=== PATIENT | male | born 1945 | race Caucasian/White ===

== ENCOUNTER 2019-11-05 10:40 | Inpatient (IN) | payer MEDICARE ==
[~2019-11-05] VITALS: Ht 188 cm; Wt 92.3 kg
[2019-11-05 12:00] VITALS: BP 128/72
[2019-11-05 12:22] LABS: BASOPHILS # (AUTO) 0.14 x10^3/uL (0-0.1); BASOPHILS % (AUTO) 1 % (0-1); EOSINOPHILS % (AUTO) 2 % (1-7); LYMPHOCYTES # (AUTO) 0.59 x10^3/uL (1-3.4); LYMPHOCYTES % (AUTO) 5 % (22-44); MD NO; MEAN CORPUSCULAR HEMOGLOBIN 27.7 pg (27.5-34.5); MEAN CORPUSCULAR HGB CONC 31.8 g/dL (33.2-36.2); MEAN CORPUSCULAR VOLUME 87.1 fL (81-97); MEAN PLATELET VOLUME 7.3 fL (7.4-10.4); MONOCYTES # (AUTO) 0.63 x10^3/uL (0.2-0.8); MONOCYTES % (AUTO) 5 % (2-9); NEUTROPHILS # (AUTO) 10.96 x10^3/uL (1.8-6.8); NEUTROPHILS % (AUTO) 88 % (42-75); PLATELET COUNT 412 x10^3/uL (130-400); RED BLOOD COUNT 3.33 x10^6/uL (4.38-5.82); RED CELL DISTRIBUTION WIDTH 16.7 % (9.4-14.8)
[2019-11-05 12:34] LABS: ALANINE AMINOTRANSFERASE 11 U/L (12-78); ALBUMIN 2.1 g/dL (3.4-5.0); ANION GAP 10 mmol/L (5-15); CHLORIDE 104 mmol/L (98-107); CREATININE 5.12 mg/dL (0.7-1.3)
[2019-11-05 12:35] LABS: ALKALINE PHOSPHATASE 82 U/L (45-117); BILIRUBIN,TOTAL 0.4 mg/dL (0.2-1.0)
[2019-11-05] MEDS ORDERED: BISACODYL 10 MG SUPP PR PRN (13:00)
[2019-11-05] MEDS ORDERED: DEXTROSE 4 GM TAB.CHEW PO PRN (13:00)
[2019-11-05] MEDS ORDERED: DEXTROSE 50%, 50ML SYRINGE IVPush PRN (13:00)
[2019-11-05] MEDS ORDERED: hydrALAzine 20 MG/ML, 1ML IVPush PRN (13:00)
[2019-11-05] MEDS ORDERED: ACETAMINOPHEN 325 MG TABLET PO PRN (13:00)
[2019-11-05] MEDS ORDERED: ONDANSETRON 2MG/ML, 2ML IVPush PRN (13:00)
[2019-11-05] MEDS: INSULIN LISPRO 100 UNITS/ML, PEN SQ-INSULIN SCH ×3 (13:00→20:01)
[2019-11-05] MEDS ORDERED: GLUCAGON 1 MG IM PRN (13:00)
[2019-11-05] MEDS ORDERED: PHARMACY MAY ADJ FOR RENAL FX MC PRN (13:00)
[2019-11-05] MEDS ORDERED: LABETALOL 5MG/ML, 20ML IVPush PRN (13:00)
[2019-11-05] MEDS ORDERED: POLYETHYLENE GLYCOL 17 GM PACKET PO PRN (13:00)
[2019-11-05] MEDS ORDERED: DOCUSATE 100 MG CAPSULE PO PRN (13:00)
[2019-11-05] MEDS ORDERED: ONDANSETRON ODT 4 MG PO PRN (13:00)
[2019-11-05] MEDS ORDERED: PLEASE ENTER HEIGHT AND WEIGHT MC SCH (13:30)
[2019-11-05] MEDS: HEPARIN 5,000 UNITS/ML, 1ML SQ SCH ×2 (13:46→21:15)
[2019-11-05] MEDS: LACTATED RINGERS 1,000 ML IV SCH (13:46)
[2019-11-05] MEDS: LORazepam 2 MG/ML, 1ML IVPush PRN (19:39)
[2019-11-05 20:33] VITALS: BP 136/63
[2019-11-05] MEDS ORDERED: DOXYCYCLINE 100MG TABLET PO SCH (21:00)
[2019-11-05] MEDS: SODIUM CHLORIDE FLUSH 10ML SYR IVF SCH (21:15)
[2019-11-06] MEDS: LORazepam 2 MG/ML, 1ML IVPush PRN ×2 (00:29→04:38)
[2019-11-06] MEDS: LACTATED RINGERS 1,000 ML IV SCH (00:29)
[2019-11-06 00:41] VITALS: BP 156/73
[2019-11-06] MEDS: HEPARIN 5,000 UNITS/ML, 1ML SQ SCH ×3 (04:23→21:45)
[2019-11-06 05:41] LABS: BASOPHILS # (AUTO) 0.01 x10^3/uL (0-0.1); BASOPHILS % (AUTO) 0 % (0-1); EOSINOPHILS # (AUTO) 0.17 x10^3/uL (0-0.4); EOSINOPHILS % (AUTO) 2 % (1-7); LYMPHOCYTES # (AUTO) 0.89 x10^3/uL (1-3.4); LYMPHOCYTES % (AUTO) 9 % (22-44); MD NO; MEAN CORPUSCULAR HGB CONC 32.4 g/dL (33.2-36.2); MEAN CORPUSCULAR VOLUME 86.5 fL (81-97); MEAN PLATELET VOLUME 7.8 fL (7.4-10.4); MONOCYTES # (AUTO) 0.29 x10^3/uL (0.2-0.8); MONOCYTES % (AUTO) 3 % (2-9); NEUTROPHILS # (AUTO) 8.92 x10^3/uL (1.8-6.8); NEUTROPHILS % (AUTO) 87 % (42-75); PLATELET COUNT 411 x10^3/uL (130-400); RED BLOOD COUNT 3.42 x10^6/uL (4.38-5.82); RED CELL DISTRIBUTION WIDTH 16.5 % (9.4-14.8)
[2019-11-06 05:53] LABS: ANION GAP 13 mmol/L (5-15); CALCIUM 8.3 mg/dL (8.5-10.1); CHLORIDE 105 mmol/L (98-107)
[2019-11-06 05:59] LABS: % IRON SATURATION 7 % (20-55); ALANINE AMINOTRANSFERASE 7 U/L (12-78); ALKALINE PHOSPHATASE 80 U/L (45-117); BILIRUBIN,TOTAL 0.4 mg/dL (0.2-1.0); CREATININE 5.13 mg/dL (0.7-1.3); IRON LEVEL 15 mcg/dL (65-175); TOTAL IRON BINDING CAPACITY 202 mcg/dL (250-450); TOTAL PROTEIN 6.1 g/dL (6.4-8.2)
[2019-11-06] MEDS: INSULIN LISPRO 100 UNITS/ML, PEN SQ-INSULIN SCH ×4 (07:00→21:45)
[2019-11-06 08:03] VITALS: BP 163/76
[2019-11-06 08:05] LABS: MICROSCOPIC INDICATED
[2019-11-06] MEDS ORDERED: HALOPERIDOL 5 MG/ML IV PRN (08:30)
[2019-11-06 08:43] LABS: CULTURE INDICATED? YES
[2019-11-06] MEDS: SODIUM CHLORIDE FLUSH 10ML SYR IVF SCH ×2 (10:42→21:45)
[2019-11-06] MEDS: CEFTAROLINE 300 MG in SODIUM CHLORIDE 0.9% 100 ML IV SCH ×2 (12:03→23:00)
[2019-11-06 13:28] VITALS: BP 161/85
[2019-11-06] MEDS ORDERED: AMLODIPINE 5 MG TABLET PO SCH (14:30)
[2019-11-06] MEDS ORDERED: HYDR-3343 PO (14:56)
[2019-11-06] MEDS ORDERED: AMLO5TAB10 MT (14:56)
[2019-11-06] MEDS ORDERED: TAMS-11 PO (14:56)
[2019-11-06] MEDS ORDERED: METF10007 MT ×2 (14:56)
[2019-11-06] MEDS ORDERED: FURO40TA6 PO (14:56)
[2019-11-06] MEDS ORDERED: PRAV40TA2 PO (14:56)
[2019-11-06] MEDS ORDERED: ASPI-515 PO (14:56)
[2019-11-06] MEDS ORDERED: FINA5TAB4 PO (14:56)
[2019-11-06] MEDS ORDERED: LABE100T6 PO (14:56)
[2019-11-06 18:28] VITALS: BP 158/88
[2019-11-07 01:21] VITALS: BP 163/86
[2019-11-07 02:31] LABS: CHLORIDE,URINE RANDOM 84 mmol/L; POTASSIUM,URINE RANDOM 9 mmol/L; SODIUM,URINE RANDOM 84 mmol/L
[2019-11-07 02:40] LABS: CREATININE,URINE RANDOM 38.2 mg/dL
[2019-11-07] MEDS: HEPARIN 5,000 UNITS/ML, 1ML SQ SCH ×3 (05:10→20:40)
[2019-11-07 06:19] VITALS: BP 167/78
[2019-11-07] MEDS: INSULIN LISPRO 100 UNITS/ML, PEN SQ-INSULIN SCH ×4 (07:00→20:40)
[2019-11-07] MEDS: AMLODIPINE 10 MG TAB PO SCH (07:58)
[2019-11-07] MEDS: SODIUM CHLORIDE FLUSH 10ML SYR IVF SCH ×2 (08:04→20:41)
[2019-11-07 08:50] LABS: BASOPHILS # (AUTO) 0.17 x10^3/uL (0-0.1); BASOPHILS % (AUTO) 2 % (0-1); EOSINOPHILS # (AUTO) 0.18 x10^3/uL (0-0.4); EOSINOPHILS % (AUTO) 2 % (1-7); LYMPHOCYTES # (AUTO) 0.58 x10^3/uL (1-3.4); LYMPHOCYTES % (AUTO) 6 % (22-44); MD NO; MEAN CORPUSCULAR HEMOGLOBIN 27.5 pg (27.5-34.5); MEAN CORPUSCULAR HGB CONC 31.9 g/dL (33.2-36.2); MEAN CORPUSCULAR VOLUME 86.2 fL (81-97); MEAN PLATELET VOLUME 7.1 fL (7.4-10.4); MONOCYTES # (AUTO) 0.35 x10^3/uL (0.2-0.8); MONOCYTES % (AUTO) 4 % (2-9); NEUTROPHILS # (AUTO) 8.49 x10^3/uL (1.8-6.8); NEUTROPHILS % (AUTO) 87 % (42-75); PLATELET COUNT 486 x10^3/uL (130-400); RED BLOOD COUNT 3.79 x10^6/uL (4.38-5.82); RED CELL DISTRIBUTION WIDTH 16.9 % (9.4-14.8)
[2019-11-07 08:54] LABS: ANION GAP 9 mmol/L (5-15); CALCIUM 8.8 mg/dL (8.5-10.1); CHLORIDE 110 mmol/L (98-107); CREATININE 3.26 mg/dL (0.7-1.3)
[2019-11-07] MEDS: CEFTAROLINE 300 MG in SODIUM CHLORIDE 0.9% 100 ML IV SCH ×2 (10:56→23:25)
[2019-11-07 12:00] VITALS: BP 150/69
[2019-11-07 19:26] VITALS: BP 149/66
[2019-11-08 01:36] VITALS: BP 152/71
[2019-11-08] MEDS: HEPARIN 5,000 UNITS/ML, 1ML SQ SCH ×3 (05:00→20:34)
[2019-11-08 05:56] LABS: BASOPHILS % (AUTO) 0 % (0-1); EOSINOPHILS # (AUTO) 0.13 x10^3/uL (0-0.4); EOSINOPHILS % (AUTO) 2 % (1-7); LYMPHOCYTES # (AUTO) 0.71 x10^3/uL (1-3.4); LYMPHOCYTES % (AUTO) 9 % (22-44); MD NO; MEAN CORPUSCULAR HEMOGLOBIN 27.4 pg (27.5-34.5); MEAN CORPUSCULAR VOLUME 85.6 fL (81-97); MEAN PLATELET VOLUME 7.2 fL (7.4-10.4); MONOCYTES % (AUTO) 4 % (2-9); NEUTROPHILS # (AUTO) 7.18 x10^3/uL (1.8-6.8); NEUTROPHILS % (AUTO) 86 % (42-75); PLATELET COUNT 454 x10^3/uL (130-400); RED CELL DISTRIBUTION WIDTH 16.8 % (9.4-14.8)
[2019-11-08 06:02] LABS: ANION GAP 5 mmol/L (5-15); CALCIUM 8.7 mg/dL (8.5-10.1); CHLORIDE 112 mmol/L (98-107)
[2019-11-08 06:04] LABS: CREATININE 2.15 mg/dL (0.7-1.3)
[2019-11-08] MEDS: INSULIN LISPRO 100 UNITS/ML, PEN SQ-INSULIN SCH ×4 (07:24→20:35)
[2019-11-08] MEDS: AMLODIPINE 10 MG TAB PO SCH (07:25)
[2019-11-08] MEDS: SODIUM CHLORIDE FLUSH 10ML SYR IVF SCH ×2 (07:25→23:30)
[2019-11-08 07:45] VITALS: BP 165/80
[2019-11-08] MEDS: CEFTAROLINE 300 MG in SODIUM CHLORIDE 0.9% 100 ML IV SCH (10:54)
--- NOTE | 2019-11-08 13:30 | NUR ---
Patient would benefit from ongoing skilled [facility] services in [facility]. Addendum: 11/08/19 at 1331 by SOMMER MURRELL Amended: Links added.
[2019-11-08 14:25] VITALS: BP 155/74
[2019-11-08 19:01] VITALS: BP 146/63
[2019-11-08] MEDS: QUETIAPINE 25MG TABLET PO SCH (20:33)
[2019-11-08] MEDS: CEFTAROLINE 400 MG in SODIUM CHLORIDE 0.9% 100 ML IV SCH (23:30)
[2019-11-09 00:54] VITALS: BP 148/64
[2019-11-09 05:24] LABS: ANION GAP 7 mmol/L (5-15); CALCIUM 8.6 mg/dL (8.5-10.1); CHLORIDE 111 mmol/L (98-107)
[2019-11-09 05:25] LABS: CREATININE 1.52 mg/dL (0.7-1.3)
[2019-11-09] MEDS: HEPARIN 5,000 UNITS/ML, 1ML SQ SCH ×3 (05:37→20:37)
[2019-11-09 08:19] VITALS: BP 157/72
[2019-11-09] MEDS: AMLODIPINE 10 MG TAB PO SCH (08:24)
[2019-11-09] MEDS: SODIUM CHLORIDE FLUSH 10ML SYR IVF SCH ×2 (08:24→20:36)
[2019-11-09] MEDS: INSULIN LISPRO 100 UNITS/ML, PEN SQ-INSULIN SCH ×4 (08:29→20:37)
[2019-11-09] MEDS: CEFTAROLINE 400 MG in SODIUM CHLORIDE 0.9% 100 ML IV SCH ×2 (11:22→23:12)
[2019-11-09 12:11] VITALS: BP 121/69
[2019-11-09] MEDS: metFORMIN 500 MG TABLET PO SCH (17:41)
[2019-11-09 18:30] VITALS: BP 143/60
[2019-11-09] MEDS: QUETIAPINE 25MG TABLET PO SCH (20:36)
[2019-11-10 00:59] VITALS: BP 146/76
[2019-11-10] MEDS: HEPARIN 5,000 UNITS/ML, 1ML SQ SCH ×2 (03:42→13:39)
[2019-11-10 05:46] LABS: ALBUMIN 2.2 g/dL (3.4-5.0); ANION GAP 6 mmol/L (5-15); CALCIUM 8.2 mg/dL (8.5-10.1); CHLORIDE 111 mmol/L (98-107); CREATININE 1.41 mg/dL (0.7-1.3)
[2019-11-10 06:50] VITALS: BP 160/83
[2019-11-10] MEDS: INSULIN LISPRO 100 UNITS/ML, PEN SQ-INSULIN SCH ×2 (07:00→11:50)
[2019-11-10] MEDS: AMLODIPINE 10 MG TAB PO SCH (07:34)
[2019-11-10] MEDS: SODIUM CHLORIDE FLUSH 10ML SYR IVF SCH (07:35)
[2019-11-10] MEDS: metFORMIN 500 MG TABLET PO SCH (07:35)
[2019-11-10] MEDS ORDERED: AMOX1TAB61 PO ×2 (08:25)
[2019-11-10] MEDS ORDERED: DOXY100T PO ×2 (09:19)
[2019-11-10] MEDS: CEFTAROLINE 400 MG in SODIUM CHLORIDE 0.9% 100 ML IV SCH (11:49)
[2019-11-10] MEDS ORDERED: METF500T PO (11:54)
[2019-11-10 13:49] VITALS: BP 132/63
== END 2019-11-10 15:10 | DRG 862 ==
LOC: 4WST 11:48
PROVIDERS: ADMIT Internal Medicine; ATTEND Hospitalist
DX: T81.41XA Infection following a procedure, superficial incisional surgical site, initial encounter (principal); N17.0 Acute kidney failure with tubular necrosis; G93.41 Metabolic encephalopathy; E43 Unspecified severe protein-calorie malnutrition; J96.21 Acute and chronic respiratory failure with hypoxia; E87.1 Hypo-osmolality and hyponatremia; I13.2 Hypertensive heart and chronic kidney disease with heart failure and with stage 5 chronic kidney disease, or end stage renal disease; I50.30 Unspecified diastolic (congestive) heart failure; M86.8X7 Other osteomyelitis, ankle and foot; J98.11 Atelectasis; N18.5 Chronic kidney disease, stage 5; Z68.26 Body mass index [BMI] 26.0-26.9, adult; D64.9 Anemia, unspecified; E11.22 Type 2 diabetes mellitus with diabetic chronic kidney disease; E11.40 Type 2 diabetes mellitus with diabetic neuropathy, unspecified; E11.69 Type 2 diabetes mellitus with other specified complication; E78.5 Hyperlipidemia, unspecified; E83.39 Other disorders of phosphorus metabolism; J44.9 Chronic obstructive pulmonary disease, unspecified; G31.84 Mild cognitive impairment of uncertain or unknown etiology; F41.9 Anxiety disorder, unspecified; N40.1 Benign prostatic hyperplasia with lower urinary tract symptoms; R33.8 Other retention of urine; D63.1 Anemia in chronic kidney disease; Y83.5 Amputation of limb(s) as the cause of abnormal reaction of the patient, or of later complication, without mention of misadventure at the time of the procedure; Z87.891 Personal history of nicotine dependence
CPT/HCPCS: 36415; 36600; 70450; 71045; 71046; 71250; 76770; 80048; 80053; 81001; 82040; 82306; 82436; 82570; 82728; 82803; 82962; 83540; 83550; 83605; 83735; 83970; 84100; 84133; 84145; 84156; 84300; 85025; 87040; 87070; 87086; 87106; 87205; 93306; G0378; J0712; J1644; 92523-GN; J0360; J1815; J2060; J7120